=== PATIENT | male | born 1970 | race Caucasian/White ===

== ENCOUNTER 2017-08-29 11:58 | Emergency (ER) | payer BC, OTHER ==
[2017-08-29 12:08] VITALS: RESP 18
[2017-08-29] MEDS ORDERED: KETOROLAC 30 MG/ML 1 ML VIAL IVP STA ×2 (12:58→16:04)
--- NOTE | 2017-08-29 13:04 | ED ---
Abdominal Pain HPI - General Chief Complaint: Abdominal Pain Stated Complaint: abdominal pain, nausea, sweating Time Seen by Provider: 08/29/17 12:29 Source: patient Mode of arrival: ambulatory Limitations: no limitations - History of Present Illness Initial Comments: This is a 47-year-old male with a history of irritable bowel disease and what he states is a history of appendicitis a resolved without surgery in the past who states he had the onset at 8 AM this morning of left-sided flank pain sharp in nature 7-8 out of 10 in severity and its max currently about a 7 had some nausea some fevers sweats chills with it. He states the pain radiated down from his flank on the left down to his penis in his left testicle. He's never had pain like this before he has no personal history of kidney stones but his dad did in the past. He also states he had an episode diarrhea. No other complaints at this time MD Complaint: abdominal pain, flank pain - Related Data Home Medications Medication Instructions Recorded Confirmed Aspirin/Sod Bicarb/Citric Acid 1 tab PO DAILY PRN 08/29/17 08/29/17 [Joleen-Kevon Original Tab Eff] Cetirizine HCl [Zyrtec] 10 mg PO DAILY 08/29/17 08/29/17 DULoxetine HCL [Cymbalta] 60 mg PO DAILY 08/29/17 08/29/17 Levothyroxine Sodium [Synthroid] 50 mcg PO DAILY 08/29/17 08/29/17 Omeprazole 20 mg PO DAILY 08/29/17 08/29/17 Previous Rx's Medication Instructions Recorded Ibuprofen 800 mg PO Q6HR PRN #20 tablet 08/29/17 Tamsulosin [Flomax] 0.4 mg PO DAILY #7 cap 08/29/17 Allergies Allergy/AdvReac Type Severity Reaction Status Date / Time aspirin AdvReac Nausea Verified 08/29/17 13:21 Fish Containing Products AdvReac Nausea & Verified 08/29/17 13:21 Vomiting & Diarrhea Review of Systems ROS Statement: Those systems with pertinent positive or pertinent negative responses have been documented in the HPI. ROS Other: All systems not noted in ROS Statement are negative. Past Medical History Past Medical History: Thyroid Disorder Additional Past Medical History / Comment(s): IBD, seasonal allergies History of Any Multi-Drug Resistant Organisms: None Reported Past Surgical History: Orthopedic Surgery, Tonsillectomy Additional Past Surgical History / Comment(s): left wrist, left groin had cyst removed Past Psychological History: Anxiety Smoking Status: Former smoker Past Alcohol Use History: Rare Past Drug Use History: None Reported General Exam - General Exam Comments Initial Comments: This is a well-developed well-nourished awake alert oriented 3 male Limitations: no limitations General appearance: alert, anxious Head exam: Present: atraumatic, normocephalic, normal inspection Eye exam: Present: normal appearance, PERRL, EOMI. Absent: scleral icterus, conjunctival injection, periorbital swelling ENT exam: Present: normal exam, mucous membranes moist Neck exam: Present: normal inspection. Absent: tenderness, meningismus, lymphadenopathy Respiratory exam: Present: normal lung sounds bilaterally. Absent: respiratory distress, wheezes, rales, rhonchi, stridor Cardiovascular Exam: Present: regular rate, normal rhythm, normal heart sounds. Absent: systolic murmur, diastolic murmur, rubs, gallop, clicks GI/Abdominal exam: Present: soft, tenderness (Some left lower quadrant and left flank tenderness palpation no guarding rebound masses or bruits), normal bowel sounds. Absent: distended, guarding, rebound, rigid Rectal exam: Present: deferred exam: Present: normal inspection, circumcision. Absent: testicular tenderness, urethral discharge, scrotal swelling Extremities exam: Present: normal inspection, full ROM, normal capillary refill. Absent: tenderness, pedal edema, joint swelling, calf tenderness Back exam: Present: normal inspection, full ROM. Absent: CVA tenderness (R), CVA tenderness (L) Neurological exam: Present: alert, oriented X3, CN II-XII intact Psychiatric exam: Present: normal affect, normal mood Skin exam: Present: warm, dry, intact, normal color. Absent: rash Course Vital Signs 08/29/17 08/29/17 12:03 15:03 Temperature 97.0 F L Pulse Rate 78 94 Respiratory 18 18 Rate Blood Pressure 162/98 137/82 O2 Sat by Pulse 100 99 Oximetry - Reevaluation(s) Reevaluation #1: 08/29/17 16:01 The patient is feeling improved after the IV medication. Medical Decision Making - Medical Decision Making I did discuss [employer] the patient family also with Dr. Crowe. Patient is afebrile he will be discharged home on appropriate medication he can't take aspirin as it is somewhat upset stomach but is not ALLERGIC to it. He tolerated Toradol well he'll be placed on nonsteroidal anti-inflammatories in addition to Flomax and a course of antibiotics. Additionally the patient is a follow-up with in his office in 2 days. - Lab Data Result diagrams: 08/29/17 13:22 08/29/17 13:35 Lab Results 08/29/17 08/29/17 08/29/17 Range/Units 13:22 13:33 13:35 WBC 13.6 H (3.8-10.6) k/uL RBC 5.13 (4.30-5.90) m/uL Hgb 16.5 (13.0-17.5) gm/dL Hct 46.7 (39.0-53.0) % MCV 91.0 (80.0-100.0) fL MCH 32.2 (25.0-35.0) pg MCHC 35.4 (31.0-37.0) g/dL RDW 13.3 (11.5-15.5) % Plt Count 250 (150-450) k/uL Neutrophils % 86 % Lymphocytes % 8 % Monocytes % 4 % Eosinophils % 1 % Basophils % 1 % Neutrophils # 11.8 H (1.3-7.7) k/uL Lymphocytes # 1.1 (1.0-4.8) k/uL Monocytes # 0.6 (0-1.0) k/uL Eosinophils # 0.1 (0-0.7) k/uL Basophils # 0.1 (0-0.2) k/uL Sodium 146 H (137-145) mmol/L Potassium 4.6 (3.5-5.1) mmol/L Chloride 103 (98-107) mmol/L Carbon Dioxide 30 (22-30) mmol/L Anion Gap 13 mmol/L BUN 18 (9-20) mg/dL Creatinine 1.20 (0.66-1.25) mg/dL Est GFR (CKD-EPI)AfAm 83 (>60 ml/min/1.73 sqM) Est GFR (CKD-EPI)NonAf 72 (>60 ml/min/1.73 sqM) Glucose 129 H (74-99) mg/dL Calcium 10.3 H (8.4-10.2) mg/dL Magnesium 1.9 (1.6-2.3) mg/dL Total Bilirubin 0.5 (0.2-1.3) mg/dL AST 41 (17-59) U/L ALT 54 (21-72) U/L Alkaline Phosphatase 129 H (38-126) U/L Total Protein 8.1 (6.3-8.2) g/dL Albumin 4.7 (3.5-5.0) g/dL Amylase 81 (30-110) U/L Lipase 204 (23-300) U/L Urine Color Yellow Urine Appearance Clear (Clear) Urine pH 7.0 (5.0-8.0) Ur Specific Ransom 1.019 (1.001-1.035) Urine Protein Trace H (Negative) Urine Glucose (UA) Negative (Negative) Urine Ketones Trace H (Negative) Urine Blood Negative (Negative) Urine Nitrite Negative (Negative) Urine Bilirubin Negative (Negative) Urine Urobilinogen <2.0 (<2.0) mg/dL Ur Leukocyte Esterase Negative (Negative) - Radiology Data Radiology results: report reviewed (I did review the imaging and reports evidence of diffuse infiltration surrounding left kidney with kidney is edematous and demonstrates moderate hydronephrosis most likely due to an obstructing calculus at the UVJ. It is 4 mm. Also multiple phleboliths), image reviewed Disposition Clinical Impression: Renal colic on left side, Ureterolithiasis, Hydronephrosis Disposition: HOME SELF-CARE Condition: Good Instructions: Flank Pain (ED), How to Strain Your Urine (ED), Renal Colic (ED) , Kidney Stones (ED) Prescriptions: Ibuprofen 800 mg PO Q6HR PRN #20 tablet PRN Reason: Pain Tamsulosin [Flomax] 0.4 mg PO DAILY #7 cap Referrals: None,Stated [Primary Care Provider] - 1-2 days Mike Crowe MD [STAFF PHYSICIAN] - 1-2 days
[2017-08-29 13:39] LABS: Basophils # (A) 0.1 k/uL (0-0.2); Basophils % (A) 1 %; Eosinophils # (A) 0.1 k/uL (0-0.7); Eosinophils % (A) 1 %; HCT 46.7 % (39.0-53.0); HGB 16.5 gm/dL (13.0-17.5); Lymphocytes # (A) 1.1 k/uL (1.0-4.8); Lymphocytes % (A) 8 %; MCH 32.2 pg (25.0-35.0); MCHC 35.4 g/dL (31.0-37.0); Mean Platelet Volume 7.2; Monocytes # (A) 0.6 k/uL (0-1.0); Monocytes % (A) 4 %; Neutrophils # (A) 11.8 k/uL (1.3-7.7); Neutrophils % (A) 86 %; Platelet Count 250 k/uL (150-450); RBC 5.13 m/uL (4.30-5.90); RDW 13.3 % (11.5-15.5); WBC 13.6 k/uL (3.8-10.6)
[2017-08-29 13:48] LABS: Albumin 4.7 g/dL (3.5-5.0); Calcium 10.3 mg/dL (8.4-10.2); Magnesium 1.9 mg/dL (1.6-2.3); Potassium 4.6 mmol/L (3.5-5.1); Total Bilirubin 0.5 mg/dL (0.2-1.3); Total Protein 8.1 g/dL (6.3-8.2)
[2017-08-29 13:49] LABS: Appearance,Urine Clear (Clear); Bilirubin,Urine Negative (Negative); Blood,Urine Negative (Negative); Color,Urine Yellow; Glucose,Urine (UA) Negative (Negative); Ketones,Urine Trace (Negative); Leukocyte Esterase,Urine Negative (Negative); Nitrite,Urine Negative (Negative); Protein,Urine Trace (Negative); Specific Gravity,Urine 1.019 (1.001-1.035); Urobilinogen,Urine <2.0 mg/dL (<2.0)
--- NOTE | 2017-08-29 15:05 | CT ---
EXAMINATION TYPE: CT abdomen pelvis wo con DATE OF EXAM: 08/29/2017 COMPARISON: NONE HISTORY: Abdominal pain, nausea and sweating. CT DLP: 789.20 mGycm Automated exposure control for dose reduction was used. TECHNIQUE: Helical acquisition of images was performed from the lung bases through the pelvis. FINDINGS: LUNG BASES: No significant abnormality is appreciated. LIVER/GB: The liver is diffusely hypodense which could be due to hepatic steatosis. Gallbladder is no ndistended and otherwise unremarkable. PANCREAS: No significant abnormality is seen. SPLEEN: No significant abnormality is seen. ADRENALS: No significant abnormality is seen. KIDNEYS: There is diffuse infiltration surrounding the left kidney. Left kidney is edematous and demo nstrates moderate hydronephrosis. This is most likely due to an obstructing calculus at the ureterove sical junction which measures approximately 4 mm. Multiple phleboliths are also identified in the fredy p pelvis subtle delineation on which calcification is the actual ascending calculus is difficult to m dre. FREE AIR: No free air is visualized RETROPERITONEAL ADENOPATHY: None visualized REPRODUCTIVE ORGANS: No significant abnormality is seen URINARY BLADDER: No significant abnormality is seen. PELVIC ADENOPATHY: None visualized. OSSEOUS STRUCTURES: No significant abnormality is seen. BOWEL: No significant abnormality is seen. Mild diverticulosis is noted. OTHER: IMPRESSION: DIFFUSE INFILTRATION SURROUNDING THE LEFT KIDNEY. THERE IS MODERATE HYDRONEPHROSIS. NO DEFINITE HYDRO NEPHROSIS IS SEEN AT THE CURRENT TIME. THIS IS FELT TO BE DUE TO AN OBSTRUCTING CALCULUS AT THE URETE ROVESICAL JUNCTION MEASURING ROUGHLY 4 MM.
[2017-08-29] MEDS ORDERED: TAMSULOSIN 0.4 MG CAP.ER.24H PO STA (16:04)
[2017-08-29 16:29] VITALS: BP 132/76; PULSE 82; TEMP 97.8
== END 2017-08-29 16:29 | disposition home or self-care (01) ==
LOC: EC 11:58
DX: N13.2 Hydronephrosis with renal and ureteral calculous obstruction (principal); I87.8 Other specified disorders of veins; Z91.013 Allergy to seafood; E07.9 Disorder of thyroid, unspecified; F41.9 Anxiety disorder, unspecified; Z87.891 Personal history of nicotine dependence; Z79.899 Other long term (current) drug therapy; Z88.6 Allergy status to analgesic agent; Z98.890 Other specified postprocedural states
CPT/HCPCS: 36415; 80053; 82150; 83690; 83735; 85025; 81003; 74176; 99284; 96374; 96376; J1885